=== PATIENT | male | born 1985 | race Two or more races ===

== ENCOUNTER 2018-03-18 02:05 | Emergency (ER) | payer BC ==
[~2018-03-18] VITALS: Ht 180.3 cm; Wt 112.0 kg
[2018-03-18 02:12] VITALS: Ht 180.3 cm; Wt 112.0 kg
[2018-03-18 03:41] VITALS: BP 128/74
== END 2018-03-18 04:01 | disposition home or self-care (01) ==
LOC: ED 02:05
DX: K21.9 Gastro-esophageal reflux disease without esophagitis (principal); R07.89 Other chest pain
CPT/HCPCS: 82962; Q0162